=== PATIENT | male | born 1980 | race Caucasian/White ===

== ENCOUNTER 2016-12-06 05:15 | Emergency (ER) | payer OTHER ==
[2016-12-06 05:28] VITALS: BP 135/84
[2016-12-06] MEDS ORDERED: LIDOCAINE 2% 10 ML MDV SUBQ STA (05:35)
[2016-12-06] MEDS ORDERED: LIDOCAINE 2% 10 ML MDV ONE (05:41)
[2016-12-06] MEDS ORDERED: TETANUS/DIPHTHERIA/PERTUSSIS 0.5 ML SYRINGE IM ONE ×2 (05:56→06:05)
[2016-12-06] MEDS ORDERED: cefTRIAXone 1 GM VIAL IM STA (05:56)
[2016-12-06] MEDS ORDERED: SULFAMETH/TRIMETH DS 800/160 MG TABLET PO STA (05:56)
[2016-12-06] MEDS ORDERED: BACITRACIN OINT TOP ONE (05:57)
--- NOTE | 2016-12-06 05:58 | ED Physician Documentation ---
History of Present Illness - Stated complaint Stated Complaint: R HAND PX - Chief complaint Chief Complaint: Ext Problem - History obtained from History obtained from: Patient - History of Present Illness Timing: How many days ago (4) Pain level max: 6 Pain level now: 5 Improved by: nothing Worsened by: movement - Additonal information Additional information: noted swelling to the R 5th digit 3-4 days ago, worse tonight. 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 Patient is right-handed. Tetanus is unknown Review of Systems Constitutional: denies: Fever, Chills GI: denies: Vomiting Skin: denies: Rash Musculoskeletal: denies: Neck pain, Back pain Neurologic: denies: Headache PD PAST MEDICAL HISTORY - Past Medical History Past Medical History: No Cardiovascular: None Respiratory: None Neuro: None Endocrine/Autoimmune: None GI: None : None HEENT: None Psych: None Musculoskeletal: None Derm: None - Past Surgical History Past Surgical History: Yes General: Other - Present Medications Home Medications: Ambulatory Orders Medication Instructions Recorded Confirmed Cephalexin [Keflex] 500 mg PO Q6H #28 capsule 12/06/16 Hydrocodone/Acetaminophen 1 - 2 each PO Q6H PRN #14 tablet 12/06/16 [Hydrocodon-Acetaminophen 5-325] Sulfamethox/Trimeth 800/160 1 each PO BID #14 tablet 12/06/16 [Bactrim Ds 800/160] - Allergies Allergies/Adverse Reactions: Allergies Allergy/AdvReac Type Severity Reaction Status Date / Time No Known Drug Allergies Allergy Verified 12/06/16 05:28 - Social History Does the pt smoke?: No Smoking Status: Never smoker Does the pt drink ETOH?: No Does the pt have substance abuse?: No - Immunizations Immunizations are current?: No - POLST Patient has POLST: No PD ED PE NORMAL - Vitals Vital signs reviewed: Yes - General General: Alert and oriented X 3, No acute distress - Derm Derm: Warm and dry - Extremities Extremities: Other (R hand 5th digit (proximal phalanx) erythematous, swollen, visible abscess. no palmar tenderness. able to flex and extend the finger. NVI.) - Neuro Neuro: Alert and oriented X 3 - Psych Psych: Normal mood, Normal affect Results - Vitals Vitals: Vital Signs - 24 hr 12/06/16 05:26 Temperature 36.4 C L Heart Rate 51 L Respiratory 16 Rate Blood Pressure 135/84 H O2 Saturation 98 Oxygen O2 Source Room air Procedures - Abscess I&D (location) R 5th digit Preparation: Chlorhexadine, Lidocaine 2 % (digital block) Incision: Incised with scalpel (11 blade, care taken to stay above the tendon sheath. Tendon examined after drainage and confirmed to be intact.), Irrigated, Culture obtained Other: Pt tolerated well, Dressing applied, Antibiotic prescribed PD MEDICAL DECISION MAKING - ED course Complexity details: considered differential, d/w patient ED course: Patient with a abscess to the dorsal aspect of the right fifth digit, proximal phalanx. No palmar tenderness over the digit or hand. Able to fully flex and extend the finger. Given Rocephin and placed on Bactrim here. Will prescribe pain medication antibiotics for home. We will have him return tomorrow morning for a recheck to ensure that this is healing. Patient counseled regarding signs and symptoms for which I believe and urgent re-evaluation would be necessary. Patient with good understanding of and agreement to plan and is comfortable going home at this time This document was made in part using voice recognition software. While efforts are made to proofread this document, sound alike and grammatical errors may occur. Departure - Departure Disposition: 01 Home, Self Care Clinical Impression: Abscess of finger Qualifiers: Laterality: right Qualified Code(s): L02.511 - Cutaneous abscess of right hand Condition: Good Instructions: ED Abscess IandD Follow-Up: return,here tomorrow for wound check [Other] Prescriptions: Sulfamethox/Trimeth 800/160 [Bactrim Ds 800/160] 1 each PO BID #14 tablet Hydrocodone/Acetaminophen [Hydrocodon-Acetaminophen 5-325] 1 - 2 each PO Q6H PRN #14 tablet PRN Reason: pain Cephalexin [Keflex] 500 mg PO Q6H #28 capsule Comments: Return tomorrow for a wound check. Keep the wound clean. Run it under hot water 2-3 times daily today for approximately 5 minutes at a time. Discharge Date/Time: 12/06/16 06:35
[2016-12-06] MEDS ORDERED: SULFAMETH/TRIMETH DS 800/160 MG TABLET PO ONE (06:03)
[2016-12-06] MEDS ORDERED: LIDOCAINE 1% 2 ML VIAL ONE (06:03)
[2016-12-06] MEDS ORDERED: cefTRIAXone 1 GM VIAL ONE (06:04)
== END 2016-12-06 06:35 | disposition home or self-care (01) ==
LOC: ED 05:15
DX: L02.511 Cutaneous abscess of right hand (principal)
CPT/HCPCS: 87070; 87205; 99283

== ENCOUNTER 2016-12-06 13:32 | Emergency (ER) | payer OTHER ==
[2016-12-06 13:47] VITALS: BP 143/75
--- NOTE | 2016-12-06 13:56 | ED Physician Documentation ---
PD HPI WOUND RECHECK - Stated complaint Stated Complaint: R FINGER WOUND-INCREASED SWELLING, TINGLING IN ARM - Chief complaint Chief Complaint: Ext Problem - Histroy obtained from History obtained from: Patient - History of Present Illness Location: Left Uppper Extremity Timing - onset: How many days ago (5) Associated symptoms: Redness, Swelling Similar symptoms before: Diagnosis (celllulitis and abscess) Recently seen: Emergency Dept (Seen here this morning with I&D of the right 5th dorsallyl) - Additional information Additional information: 36-year-old male was seen in the emergency department early this morning with I& D of a abscess over the proximal phalanx of the right fifth digit. He is able to flex and extend the finger he does have swelling of the hand and swelling is extending up into the forearm. He is returned today after having taken doses of sulfamethoxazole trimethoprim and Keflex about 1 hour ago. He is concerned that the swelling is worse than it was this morning. He is still able to flex and extend the finger. Review of Systems Constitutional: reports: Fatigue. denies: Fever, Chills Nose: denies: Congestion Throat: denies: Sore throat Respiratory: denies: Dyspnea, Cough GI: denies: Abdominal Pain, Nausea, Vomiting : denies: Dysuria Skin: denies: Rash Musculoskeletal: reports: Extremity pain, Joint pain, Extremity swelling, Joint swelling Neurologic: denies: Generalized weakness, Focal weakness, Numbness PD PAST MEDICAL HISTORY - Past Medical History Cardiovascular: None Respiratory: None Neuro: None Endocrine/Autoimmune: None GI: None : None HEENT: None Psych: None Musculoskeletal: None Derm: None - Past Surgical History Past Surgical History: Yes General: Other - Present Medications Home Medications: Ambulatory Orders Medication Instructions Recorded Confirmed Cephalexin [Keflex] 500 mg PO Q6H #28 capsule 12/06/16 Hydrocodone/Acetaminophen 1 - 2 each PO Q6H PRN #14 tablet 12/06/16 [Hydrocodon-Acetaminophen 5-325] Sulfamethox/Trimeth 800/160 1 each PO BID #14 tablet 12/06/16 [Bactrim Ds 800/160] - Allergies Allergies/Adverse Reactions: Allergies Allergy/AdvReac Type Severity Reaction Status Date / Time No Known Drug Allergies Allergy Verified 12/06/16 05:28 - Social History Does the pt smoke?: No Smoking Status: Never smoker Does the pt drink ETOH?: No Does the pt have substance abuse?: No - Immunizations Immunizations are current?: No - POLST Patient has POLST: No PD ED PE NORMAL - Vitals Vital signs reviewed: Yes (hypertensive ) - General General: Alert and oriented X 3, No acute distress, Well developed/nourished - HEENT HEENT: Atraumatic, PERRL - Neck Neck: Supple, no meningeal sign - Respiratory Respiratory: No respiratory distress - Derm Derm: Normal color, Warm and dry - Extremities Extremities: No deformity. No: Other (There is swelling, tenderness and erythema to the dorsum of the right proximal 5th digit. He is able to flex and extend the finger and does not have undue pain. He does have some swelling to the forearm over the dorsal surface that extends to the brachioradialis with faint erythema. disatl n/v is intact. ) - Neuro Neuro: No motor deficit, No sensory deficit - Psych Psych: Normal mood, Normal affect Results - Vitals Vitals: Vital Signs - 24 hr 12/06/16 13:41 Temperature 36.7 C Heart Rate 59 L Respiratory 16 Rate Blood Pressure 143/75 H O2 Saturation 100 Oxygen O2 Source Room air PD MEDICAL DECISION MAKING - ED course Complexity details: considered differential, d/w patient ED course: 36-year-old male with an I&D done early this morning received an injection of Rocephin while he was here in the emergency department that he has recently started on sulfamethoxazole trimethoprim and Keflex. He took a dose of this of approximately 1 hour before coming into the emergency department. He is concerned because he is having increased swelling to the hand and forearm. He is concerned about a treatment failure. I believe it is too soon to call this a treatment failure and have encouraged the patient to use a warm compress 2-3 times per day to continue to take the antibiotics as prescribed and follow-up tomorrow morning as planned. I have asked the patient to follow-up sooner should he have progression of symptoms despite the treatment. Departure - Departure Disposition: 01 Home, Self Care Clinical Impression: Cellulitis and abscess of hand Condition: Stable Instructions: ED Infec Skin Cellulitis, ED Abscess IandD Follow-Up: [facility] [Provider Group] Comments: This afternoon there is more swelling to your hand than there was this morning and antibiotics were started about 1 hour ago. If you have continued worsening of the swelling and development of redness in your forearm, follow-up with us again today. Otherwise follow-up tomorrow morning as previously planned.
== END 2016-12-06 14:39 | disposition home or self-care (01) ==
LOC: ED 13:32
DX: L02.511 Cutaneous abscess of right hand (principal); L03.113 Cellulitis of right upper limb; Z23 Encounter for immunization
CPT/HCPCS: 10060; 87070; 87181; 87205; 90471; 90715; 96372; 99283; A9270

== ENCOUNTER 2016-12-07 09:11 | Emergency (ER) | payer OTHER ==
[2016-12-07 09:28] VITALS: BP 137/78
--- NOTE | 2016-12-07 11:44 | ED Physician Documentation ---
History of Present Illness - Stated complaint Stated Complaint: RE-CHECK R FINGER WOUND - Chief complaint Chief Complaint: Ext Problem - Additonal information Additional information: hx from pt seen twice yesterday for finger abscess R 5th PIP prox phalange drained and cx growing staph no sensitivities yet back for wound check doing better Review of Systems Skin: reports: Lesions PD PAST MEDICAL HISTORY - Past Medical History Cardiovascular: None Respiratory: None Neuro: None Endocrine/Autoimmune: None GI: None : None HEENT: None Psych: None Musculoskeletal: None Derm: None - Past Surgical History Past Surgical History: Yes General: Other - Present Medications Home Medications: Ambulatory Orders Medication Instructions Recorded Confirmed Cephalexin [Keflex] 500 mg PO Q6H #28 capsule 12/06/16 12/07/16 Hydrocodone/Acetaminophen 1 - 2 each PO Q6H PRN #14 tablet 12/06/16 [Hydrocodon-Acetaminophen 5-325] Sulfamethox/Trimeth 800/160 1 each PO BID #14 tablet 12/06/16 12/07/16 [Bactrim Ds 800/160] - Allergies Allergies/Adverse Reactions: Allergies Allergy/AdvReac Type Severity Reaction Status Date / Time No Known Drug Allergies Allergy Verified 12/07/16 09:28 - Social History Does the pt smoke?: No Smoking Status: Never smoker Does the pt drink ETOH?: No Does the pt have substance abuse?: No - Immunizations Immunizations are current?: No - POLST Patient has POLST: No PD ED PE NORMAL - Vitals Vital signs reviewed: Yes - Extremities Extremities: Other (R hand 5th finge rprox phalage red and swowllen with open bullae drainign small amt of pus over PIP/prox phalange region, full ROM MCP and PIP s pain so doubt septic jt or tendon sheath infection, no streaking) Results - Vitals Vitals: Vital Signs - 24 hr 12/07/16 09:25 Temperature 36.7 C Heart Rate 55 L Respiratory 16 Rate Blood Pressure 137/78 H O2 Saturation 97 Oxygen O2 Source Room air Departure - Departure Disposition: 01 Home, Self Care Clinical Impression: Cellulitis and abscess of hand Condition: Good Instructions: ED Abscess IandD, ED Infec Skin Cellulitis Comments: The culture shows that the infection is caused by a bacteria called staph - but the sensitivities to different antibiotics have not been determined yet So for now continue both antibiotics. Soak finger in warm water several times a day to prevent crusting and allow drainage to continue Follow up with your PMD for a recheck next week Return if worse Alos please get your blood pressure rechecked - it was a little high today Forms: Activity restrictions
== END 2016-12-07 12:17 | disposition home or self-care (01) ==
LOC: ED 09:11
DX: L02.511 Cutaneous abscess of right hand (principal); L03.011 Cellulitis of right finger
CPT/HCPCS: 99282; 99283